=== PATIENT | female | born 1970 | race Caucasian/White ===

== ENCOUNTER 2020-04-12 08:22 | Outpatient (CLI) | payer OTHER | END 2020-04-12 08:23 | disposition home or self-care (01) | LOC: SCSMRI 08:22 | PROVIDERS: ATTEND Neurological Surgery | DX: M54.12 Radiculopathy, cervical region (principal); R55 Syncope and collapse; Z98.1 Arthrodesis status | CPT/HCPCS: 70551; 72141 ==

== ENCOUNTER 2022-07-16 17:00 | Inpatient (IN) | payer BC ==
[2022-07-16 16:17] VITALS: BMI 27.3
[2022-07-20] MEDS ORDERED: Tranexamic Acid 1,000 MG/10 ML VIAL ONE (07:49)
[2022-07-20] MEDS ORDERED: Sodium Chloride 0.9% 100 ML ONE ×2 (07:49→09:45)
[2022-07-20] MEDS ORDERED: Vancomycin 1 GM/200 ML (FROZEN) BAG ONE (07:49)
[2022-07-20] MEDS ORDERED: Midazolam HCl 2 mg/2 ml Vial ONE ×2 (08:04→12:41)
[2022-07-20] MEDS ORDERED: Ropivacaine 0.5% HCl/PF (150 MG/30 ML VIAL) ONE (08:04)
[2022-07-20] MEDS ORDERED: fentaNYL 50 mcg/mL 1 mL Vial ONE (08:04)
[2022-07-20] MEDS ORDERED: Acetaminophen 500 MG TAB ONE (09:15)
[2022-07-20] MEDS ORDERED: CEFAZOLIN 2 GM VIAL ONE (09:45)
[2022-07-20] MEDS ORDERED: diphenhydrAMINE 25 MG CAP PO PRN (09:53)
[2022-07-20] MEDS ORDERED: HYDROcodone/Acetaminophen 10/325 mg Tablet PO PRN (09:53)
[2022-07-20] MEDS ORDERED: Ondansetron PF 4 MG/2 ML Vial IVP PRN (09:53)
[2022-07-20] MEDS ORDERED: fentaNYL 50 mcg/mL 1 mL Vial SLOW IVP PRN (09:53)
[2022-07-20] MEDS ORDERED: Promethazine HCl 25 MG/ML VIAL IM PRN ×2 (09:53→11:53)
[2022-07-20] MEDS ORDERED: Acetaminophen 325 MG TAB PO PRN (09:53)
[2022-07-20] MEDS ORDERED: fentaNYL PF 100 MCG/2 ML SYRINGE ONE (09:55)
[2022-07-20] MEDS ORDERED: Propofol 500 MG/50 ML VIAL ONE (09:55)
[2022-07-20] MEDS ORDERED: Methocarbamol 500 MG TAB PO PRN (09:55)
[2022-07-20] MEDS ORDERED: Sodium Chloride 0.9% 1,000 ML IV SCH (10:00)
[2022-07-20] MEDS ORDERED: Ropivacaine 0.2% HCl/PF 20 ML ONE (10:07)
[2022-07-20] MEDS ORDERED: Semaglutide [Ozempic] 1 MG/0.75 ML Pen.Injctr SC SCH (10:15)
[2022-07-20] MEDS ORDERED: Ketorolac Tromethamine 30 MG/ML VIAL ONE (10:56)
[2022-07-20] MEDS ORDERED: PROPOFOL 200 MG/20 ML VIAL ONE (10:56)
[2022-07-20] MEDS ORDERED: PHENYLEPHRINE-NS 100 MCG/ML 10 ML SYRINGE ONE (10:56)
[2022-07-20] MEDS ORDERED: GLYCOPYRROLATE/PF 0.2 MG/ML VIAL ONE (10:56)
[2022-07-20] MEDS ORDERED: ePHEDrine Sulfate 50 MG/10 ML VIAL ONE (10:56)
[2022-07-20] MEDS ORDERED: NEOSTIGMINE 3 MG/3 ML SYR 3 MG/3 ML SYRINGE ONE (10:56)
[2022-07-20] MEDS ORDERED: Dexamethasone 20 MG/5 ML VIAL ONE (10:56)
[2022-07-20] MEDS ORDERED: Lidocaine 1% PF 5 ML VIAL ONE (10:56)
[2022-07-20] MEDS ORDERED: HYDROmorphone 2 MG/ML VIAL SLOW IVP PRN (11:53)
[2022-07-20] MEDS ORDERED: Meperidine HCl/PF 25 MG/ML VIAL SLOW IVP PRN (11:53)
[2022-07-20] MEDS ORDERED: Promethazine HCl 25 MG/ML VIAL ONE (12:26)
[2022-07-20] MEDS ORDERED: Ondansetron PF 4 MG/2 ML Vial ONE (12:48)
[2022-07-20] MEDS ORDERED: Fentanyl 250 MCG/5 ML VIAL ONE (13:15)
[2022-07-20] MEDS ORDERED: Bupivacaine PF 0.5% 30 ML VIAL ONE (14:47)
[2022-07-20] MEDS: Ketorolac Tromethamine 30 MG/ML VIAL IVP SCH ×2 (17:14→20:36)
[2022-07-20] MEDS: CEFAZOLIN 2 GM in Sodium Chloride 0.9% 100 ML IVPB SCH (18:26)
[2022-07-20] MEDS: busPIRone HCl 10 MG TAB PO SCH (20:29)
[2022-07-20] MEDS: Pregabalin 50 MG CAP PO SCH (20:31)
[2022-07-20] MEDS: Trospium 20 MG TAB PO SCH (20:32)
[2022-07-20] MEDS: Aspirin 81 mg Enteric Coated Tablet PO SCH (20:35)
[2022-07-20] MEDS: Senokot S 8.6-50 MG TAB PO SCH (20:36)
[2022-07-20] MEDS: Ferrous Gluconate 324 MG TAB PO SCH (20:36)
[2022-07-20] MEDS ORDERED: Montelukast Sodium 10 mg Tablet PO SCH (21:00)
[2022-07-20] MEDS: HYDROcodone/Acetaminophen 10/325 mg Tablet PO PRN (22:23)
[2022-07-21] MEDS: CEFAZOLIN 2 GM in Sodium Chloride 0.9% 100 ML IVPB SCH (01:50)
[2022-07-21] MEDS: HYDROcodone/Acetaminophen 10/325 mg Tablet PO PRN ×2 (03:37→10:38)
[2022-07-21] MEDS: Ketorolac Tromethamine 30 MG/ML VIAL IVP SCH (05:59)
[2022-07-21 06:29] LABS: Hemoglobin 10.9 g/dL (12.0-16.0); Mean Corpuscular HGB CONC 32.9 g/dL (32.0-36.0); Mean Corpuscular Hemoglobin 28.9 pg (27.0-31.0); Mean Corpuscular Volume 87.8 fl (78.0-98.0); Platelet Count 194 10x3/uL (130-400); RBC Distribution Width 12.2 % (11.5-14.5); Red Blood Cell (RBC) Count 3.77 mill/uL (4.20-5.40); White Blood Cell (WBC) Count 6.9 10x3/uL (4.8-10.8)
[2022-07-21 07:55] VITALS: BP 105/70; TEMP 98.2
[2022-07-21] MEDS: Senokot S 8.6-50 MG TAB PO SCH (08:58)
[2022-07-21] MEDS: Trospium 20 MG TAB PO SCH (08:58)
[2022-07-21] MEDS: Aspirin 81 mg Enteric Coated Tablet PO SCH (08:58)
[2022-07-21] MEDS: Ferrous Gluconate 324 MG TAB PO SCH (08:59)
[2022-07-21] MEDS: Pregabalin 50 MG CAP PO SCH (08:59)
[2022-07-21] MEDS: busPIRone HCl 10 MG TAB PO SCH (08:59)
[2022-07-21] MEDS ORDERED: CeleCOXIB 100 MG CAP PO SCH (09:00)
[2022-07-21] MEDS ORDERED: Linaclotide [Linzess] 72 MCG Capsule PO SCH (09:00)
[2022-07-21] MEDS ORDERED: Bupropion 150 MG SR TAB PO SCH (09:00)
[2022-07-21] MEDS ORDERED: Multivitamin W/ Minerals 1 TAB PO SCH (09:00)
[2022-07-21] MEDS ORDERED: Lisdexamfetamine Dimesylate [Vyvanse] 30 MG Capsule PO SCH (09:00)
[2022-07-21] MEDS ORDERED: Midazolam HCl 2 mg/2 ml Vial ONE (09:42)
== END 2022-07-21 11:03 | disposition home or self-care (01) | DRG 470 ==
LOC: SURG A 07-20 06:18 → SJJU 07-20 16:49 → EDSTATUS 07-20 17:00
PROVIDERS: ADMIT Orthopaedic Surgery; ATTEND Orthopaedic Surgery
PROC: 0SR904Z Replacement of Right Hip Joint with Ceramic on Polyethylene Synthetic Substitute, Open Approach (ICD-10-PCS; principal; 2022-07-20)
DX: M16.11 Unilateral primary osteoarthritis, right hip (principal); F41.9 Anxiety disorder, unspecified; F32.A Depression, unspecified; J30.2 Other seasonal allergic rhinitis; E78.5 Hyperlipidemia, unspecified; K21.9 Gastro-esophageal reflux disease without esophagitis; M79.7 Fibromyalgia; Z90.49 Acquired absence of other specified parts of digestive tract; Z88.8 Allergy status to other drugs, medicaments and biological substances; Z90.710 Acquired absence of both cervix and uterus; Z98.84 Bariatric surgery status; Z98.1 Arthrodesis status; Z82.49 Family history of ischemic heart disease and other diseases of the circulatory system; Z80.9 Family history of malignant neoplasm, unspecified; Z87.891 Personal history of nicotine dependence; Z79.899 Other long term (current) drug therapy
CPT/HCPCS: 36415; 85027; C1776; J1100; J1885; J2250; J2405; J2550; J2704; J2795; J3010; J3370-JW; J3490; S0020

== ENCOUNTER 2022-10-26 15:22 | Outpatient (CLI) | payer BC ==
[2022-10-26 16:46] LABS: #Eosinphils 0.1 10x3/uL (0.0-0.5); #Monocytes 0.4 10x3/uL (0.0-1.1); #Neutrophils 3.4 10x3/uL (1.5-8.4); %Basophils 0.5 % (0.0-2.0); %Lymphocytes 38.9 % (18.0-47.0); %Monocytes 5.9 % (0.0-10.0); %Neutrophils 53.5 % (40.0-75.0); Hematocrit 38.5 % (34.9-44.5); Hemoglobin 12.8 g/dL (12.0-15.5); Mean Corpuscular HGB CONC 33.2 g/dL (32.0-36.0); Mean Corpuscular Hemoglobin 28.4 pg (27.0-33.0); Mean Corpuscular Volume 85.6 fl (81.6-98.3); Mean Platelet Volume 10.6 fl (7.4-10.4); Platelet Count 292 10x3/uL (150-450); RBC Distribution Width 11.9 % (11.5-14.5); White Blood Cell (WBC) Count 6.3 10x3/uL (3.5-10.5)
[2022-10-26 17:09] LABS: ALT (SGPT) 21 U/L (8-55); AST (SGOT) 17 U/L (5-34); Albumin 4.4 g/dL (3.5-5.0); Alkaline Phosphatase 64 U/L (40-110); Anion Gap 10 mmol/L (10-20); BUN (Urea Nitrogen) 17 mg/dL (9.8-20.1); Bilirubin, Total 0.4 mg/dL (0.2-1.2); Calc. Creatinine Clearance 0 mL/min (70-130); Calcium 9.4 mg/dL (7.8-10.44); Carbon Dioxide 29 mmol/L (22-29); Chloride 106 mmol/L (98-107); Estimated GFR 87; Globulin 2.4 g/dL (2.4-3.5); Glucose 81 mg/dL (70-105); Potassium 4.3 mmol/L (3.5-5.1); Protein, Total 6.8 g/dL (6.0-8.3); Sodium 141 mmol/L (136-145)
== END 2022-10-26 15:23 | disposition home or self-care (01) ==
LOC: LABBT 15:22
PROVIDERS: ATTEND Surgery
DX: Z01.818 Encounter for other preprocedural examination (principal); D17.1 Benign lipomatous neoplasm of skin and subcutaneous tissue of trunk
CPT/HCPCS: 80053; 85025; 93005; 93010

== ENCOUNTER 2022-12-22 07:38 | Day surgery (SDC) | payer BC ==
[2022-12-21 10:24] VITALS: BMI 24.7
[2022-12-22] MEDS ORDERED: Lidocaine 1% w/Epinephrine 1:100K 20 ML VIAL ONE (07:59)
== END 2022-12-22 09:10 | disposition home or self-care (01) ==
LOC: SDC 07:38
PROVIDERS: ATTEND Internal Medicine Cardiovascular Disease
PROC: 0JPT02Z Removal of Monitoring Device from Trunk Subcutaneous Tissue and Fascia, Open Approach (ICD-10-PCS; principal; 2022-12-22)
DX: T82.191A Other mechanical complication of cardiac pulse generator (battery), initial encounter (principal); R55 Syncope and collapse; I47.19 Other supraventricular tachycardia; R00.2 Palpitations; Z98.84 Bariatric surgery status; Z90.710 Acquired absence of both cervix and uterus; Z90.49 Acquired absence of other specified parts of digestive tract; Z87.891 Personal history of nicotine dependence; Z98.890 Other specified postprocedural states; Y71.2 Prosthetic and other implants, materials and accessory cardiovascular devices associated with adverse incidents
CPT/HCPCS: 33286; C1764

== ENCOUNTER 2023-02-02 12:17 | Outpatient (CLI) | payer BC | END 2023-02-02 12:18 | disposition home or self-care (01) | LOC: BICMAMMO 12:17 | PROVIDERS: ATTEND Nurse Practitioner Family | DX: Z12.31 Encounter for screening mammogram for malignant neoplasm of breast (principal) | CPT/HCPCS: 77063; 77067 ==

== ENCOUNTER 2024-03-16 14:29 | Inpatient (IN) | payer BC, OTHER ==
[2024-03-16] MEDS ORDERED: Acetaminophen 500 MG TAB ONE (15:44)
[2024-03-16 16:02] LABS: #Basophils 0.03 10x3/uL (0.0-0.2); #Eosinophils Less than 0.03 10x3/uL (0.0-0.7); %Basophils 0.5 % (0.0-1.0); %Eosinophils 0.4 % (0.0-10.0); %Lymphocytes 35.4 % (21.0-51.0); %Monocytes 5.2 % (0.0-10.0); %Neutrophils 58.3 % (42.0-75.0); Hematocrit 41.6 % (36.0-47.0); Hemoglobin 14.3 g/dL (12.0-16.0); Mean Corpuscular HGB CONC 34.4 g/dL (32.0-36.0); Mean Corpuscular Hemoglobin 29.2 pg (27.0-31.0); Mean Corpuscular Volume 84.9 fL (78.0-98.0); Mean Platelet Volume 9.7 fL (7.4-10.4); Platelet Count 290 10x3/uL (130-400); RBC Distribution Width 12.6 % (11.5-14.5)
[2024-03-16 16:17] LABS: Base Excess -1.5 mEq/L (-2.0 to +3.0); Chloride (VBG) 101 mmol/L (98-106); Hematocrit-VBG 44 % (36.0-47.0); Hemoglobin (Hb) 14.9 g/dL (11.7-16.0); Potassium (VBG) 4.03 mmol/L (3.70-5.30)
[2024-03-16 16:24] LABS: Acetaminophen Less than 10 mcg/mL (Less than 10); Alcohol Less than 10.0 mg/dL (Less than 10); Lipase 18 U/L (8-78); Salicylate Less than 8.0 mg/dL (Less than 8.0)
[2024-03-16 16:25] LABS: ALT (SGPT) 17 U/L (Less than 34); AST (SGOT) 16 U/L (11-34); Albumin 4.4 g/dL (3.1-4.5); Alkaline Phosphatase 72 U/L (40-110); Anion Gap 13 mmol/L (10-20); BUN (Urea Nitrogen) 10 mg/dL (9.8-20.1); Bilirubin, Total 0.6 mg/dL (0.3-1.2); Calc. Creatinine Clearance 0 mL/min (70-130); Calcium 9.6 mg/dL (7.8-10.44); Carbon Dioxide 27 mmol/L (22-29); Chloride 105 mmol/L (98-107); Estimated GFR 103; Globulin 3.1 g/dL (2.4-3.5); Glucose 79 mg/dL (70-105); Potassium 4.2 mmol/L (3.5-5.1); Protein, Total 7.5 g/dL (6.0-8.3); Sodium 141 mmol/L (136-145)
[2024-03-16 18:17] LABS: Amphetamine Detected (NotDetected); Barbiturates Screen Not Detected (NotDetected); Benzodiazepine Screen Not Detected (NotDetected); Cocaine Metabolite Screen Not Detected (NotDetected); Methadone Not Detected (NotDetected); Methamphetamine Not Detected (NotDetected); Opiate Screen Not Detected (NotDetected); Oxycodone Screen Not Detected (NotDetected); Phencyclidine (PCP) Not Detected (NotDetected); THC/Cannabinoid Screen Not Detected (NotDetected); Tricyclic Screen Not Detected (NotDetected)
[2024-03-16 18:22] LABS: Bacteria/HPF None Seen HPF (None Seen); Bilirubin Negative (Negative); Blood, Urine Negative (Negative); CAUTI Indications for Culture Dysuria,urgency,freq; Clarity Clear (Clear); Glucose, Urine (Dipstick) Normal (Negative); Ketone, Urine Negative (Negative); Leukocyte Negative Leu/uL (Negative); Nitrite Negative (Negative); Protein, Urine (Dipstick) Negative (Neg-Trace); RBC/HPF 0-3 HPF (0-3); Specific Gravity, Urine 1.006 (1.002-1.036); Squamous Epithelial 0-3 HPF (0-3); Urobilinogen Normal mg/dL (Less than 2); WBC/HPF 0-3 HPF (0-3)
[2024-03-16 18:26] LABS: Urine Culture Reflex No No
[2024-03-16 18:46] LABS: Troponin I Less than 0.010 ng/mL (< 0.028)
[2024-03-16] MEDS ORDERED: Methocarbamol 500 MG TAB PO PRN (19:09)
[2024-03-16] MEDS ORDERED: HYDROcodone/Acetaminophen 7.5/325 mg Tablet PO PRN (19:09)
[2024-03-16] MEDS ORDERED: Ondansetron PF 4 MG/2 ML Vial IVP PRN (19:20)
[2024-03-16] MEDS ORDERED: Metoprolol Succinate XL 25 MG ER.TAB PO SCH (21:00)
[2024-03-17] MEDS: busPIRone HCl 10 MG TAB PO SCH ×2 (01:30→01:43)
[2024-03-17] MEDS: Heparin 5,000 UNITS/ML VIAL SC SCH (01:30)
[2024-03-17] MEDS: Metoprolol Succinate XL 50 MG ER.TAB PO SCH ×2 (01:30→01:43)
[2024-03-17] MEDS: Sodium Chloride 0.9% 1,000 ML IV SCH (01:30)
[2024-03-17] MEDS: Pregabalin 50 MG CAP PO SCH (01:31)
[2024-03-17] MEDS: Montelukast Sodium 10 mg Tablet PO SCH ×2 (01:31→01:44)
[2024-03-17 04:50] LABS: #Basophils 0.05 10x3/uL (0.0-0.2); %Eosinophils 1.5 % (0.0-10.0); %Lymphocytes 42.9 % (21.0-51.0); %Monocytes 8.7 % (0.0-10.0); %Neutrophils 45.7 % (42.0-75.0); Hematocrit 37.2 % (36.0-47.0); Hemoglobin 12.2 g/dL (12.0-16.0); Mean Corpuscular HGB CONC 32.8 g/dL (32.0-36.0); Mean Corpuscular Hemoglobin 28.5 pg (27.0-31.0); Mean Corpuscular Volume 86.9 fL (78.0-98.0); Mean Platelet Volume 10.4 fL (7.4-10.4); Platelet Count 249 10x3/uL (130-400); RBC Distribution Width 12.8 % (11.5-14.5); Red Blood Cell (RBC) Count 4.28 mill/uL (4.20-5.40)
[2024-03-17 05:17] LABS: Troponin I 0.017 ng/mL (< 0.028)
[2024-03-17 05:41] LABS: Anion Gap 14 mmol/L (10-20); BUN (Urea Nitrogen) 10 mg/dL (9.8-20.1); Calc. Creatinine Clearance 103 mL/min (70-130); Calcium 8.7 mg/dL (7.8-10.44); Carbon Dioxide 22 mmol/L (22-29); Chloride 110 mmol/L (98-107); Estimated GFR 105; Glucose 49 mg/dL (70-105); Potassium 3.9 mmol/L (3.5-5.1); Sodium 142 mmol/L (136-145)
[2024-03-17 06:03] LABS: Troponin I Less than 0.010 ng/mL (< 0.028)
[2024-03-17] MEDS: Bupropion 150 MG SR.TAB PO SCH (07:34)
[2024-03-17] MEDS: Acetaminophen 325 MG TAB PO PRN (07:34)
[2024-03-17] MEDS: Rosuvastatin 10 MG TAB PO SCH (07:35)
[2024-03-17] MEDS: Pantoprazole 40 MG DR.TAB PO SCH (07:36)
[2024-03-17] MEDS: FLU (Fluarix Triv) TS24-25(6MOS UP)/PF 45 MCG/0.5 ML Syringe IM ONE (07:36)
[2024-03-17] MEDS ORDERED: Lisdexamfetamine Dimesylate [Vyvanse] 30 MG Capsule PO SCH (09:00)
[2024-03-17] MEDS: Butalbital 50 MG/Aspirin 325 MG/Caffeine 40 MG CAPSULE PO PRN (10:18)
[2024-03-17] MEDS: Senokot S 8.6-50 MG TAB PO SCH (21:20)
[2024-03-18 05:23] LABS: #Basophils Less than 0.03 10x3/uL (0.0-0.2); %Basophils 0.4 % (0.0-1.0); %Eosinophils 1.9 % (0.0-10.0); %Lymphocytes 46.7 % (21.0-51.0); %Neutrophils 42.8 % (42.0-75.0); Hematocrit 40.1 % (36.0-47.0); Hemoglobin 13.3 g/dL (12.0-16.0); Mean Corpuscular HGB CONC 33.2 g/dL (32.0-36.0); Mean Corpuscular Hemoglobin 28.6 pg (27.0-31.0); Mean Corpuscular Volume 86.2 fL (78.0-98.0); Mean Platelet Volume 9.7 fL (7.4-10.4); Platelet Count 227 10x3/uL (130-400); Red Blood Cell (RBC) Count 4.65 mill/uL (4.20-5.40)
[2024-03-18 05:50] LABS: Anion Gap 12 mmol/L (10-20); BUN (Urea Nitrogen) 13 mg/dL (9.8-20.1); Calc. Creatinine Clearance 76 mL/min (70-130); Carbon Dioxide 27 mmol/L (22-29); Chloride 108 mmol/L (98-107); Estimated GFR 81; Glucose 81 mg/dL (70-105); Potassium 4.8 mmol/L (3.5-5.1); Sodium 142 mmol/L (136-145)
[2024-03-18 08:18] VITALS: BP 117/59; TEMP 98.2
== END 2024-03-18 12:45 | disposition home or self-care (01) | DRG 312 ==
LOC: ERS 14:29 → ERHOLD 19:22 → OBS 03-17 00:48 → OBSVTOIN 03-17 13:31
PROVIDERS: ADMIT Family Medicine; ATTEND Internal Medicine
DX: R55 Syncope and collapse (principal); I47.20 Ventricular tachycardia, unspecified; I49.9 Cardiac arrhythmia, unspecified; E78.5 Hyperlipidemia, unspecified; F41.9 Anxiety disorder, unspecified; K21.9 Gastro-esophageal reflux disease without esophagitis; R00.2 Palpitations; M79.7 Fibromyalgia; F32.A Depression, unspecified; F90.9 Attention-deficit hyperactivity disorder, unspecified type; F15.90 Other stimulant use, unspecified, uncomplicated; Z96.641 Presence of right artificial hip joint; Z88.8 Allergy status to other drugs, medicaments and biological substances; Z90.710 Acquired absence of both cervix and uterus; Z90.49 Acquired absence of other specified parts of digestive tract; Z98.1 Arthrodesis status; Z87.891 Personal history of nicotine dependence; M48.02 Spinal stenosis, cervical region; I08.1 Rheumatic disorders of both mitral and tricuspid valves
CPT/HCPCS: 36415; 36416; 70450; 71045; 80048; 80053; 80306; 80307; 81001; 82805; 83690; 83735; 84484; 85025; 87077; 87086; 87428; 93005; 93306; 96360; 96372; G0378; J1644; J7030

== ENCOUNTER 2024-10-10 16:53 | Emergency (ER) | payer OTHER, SELFPAY ==
[2024-10-10] MEDS ORDERED: Ketorolac Tromethamine 30 MG (1 mL) VIAL ONE (19:25)
[2024-10-10] MEDS ORDERED: Dexamethasone 10 MG/ML VIAL ONE (19:26)
[2024-10-10 19:35] LABS: #Basophils 0.03 10x3/uL (0.0-0.2); #Eosinophils Less than 0.03 10x3/uL (0.0-0.7); #Monocytes 1.36 10x3/uL (0.11-0.59); #Neutrophils 7.73 10x3/uL (1.40-6.50); %Basophils 0.3 % (0.0-1.0); %Eosinophils 0.1 % (0.0-10.0); %Lymphocytes 17.7 % (21.0-51.0); %Monocytes 12.2 % (0.0-10.0); %Neutrophils 69.4 % (42.0-75.0); Hematocrit 41.9 % (36.0-47.0); Hemoglobin 13.9 g/dL (12.0-16.0); Mean Corpuscular Hemoglobin 28.6 pg (27.0-31.0); Mean Corpuscular Volume 86.2 fL (78.0-98.0); Platelet Count 273 10x3/uL (130-400); Red Blood Cell (RBC) Count 4.86 mill/uL (4.20-5.40); White Blood Cell (WBC) Count 11.13 10x3/uL (4.8-10.8)
[2024-10-10 19:47] LABS: ALT (SGPT) 11 U/L (Less than 34); AST (SGOT) 14 U/L (11-34); Albumin 3.6 g/dL (3.1-4.5); Alkaline Phosphatase 83 U/L (40-110); Anion Gap 19 mmol/L (10-20); BUN (Urea Nitrogen) 14 mg/dL (9.8-20.1); Bilirubin, Total 1.1 mg/dL (0.3-1.2); Calc. Creatinine Clearance 0 mL/min (70-130); Calcium 9.6 mg/dL (7.8-10.44); Carbon Dioxide 25 mmol/L (22-29); Chloride 97 mmol/L (98-107); Globulin 4.1 g/dL (2.4-3.5); Glucose 93 mg/dL (70-105); Potassium 3.6 mmol/L (3.5-5.1); Sodium 137 mmol/L (136-145)
[2024-10-10 19:55] LABS: Bacteria/HPF 4+ HPF (None Seen); CAUTI Indications for Culture Acute Hematuria; Glucose, Urine (Dipstick) Normal (Negative); Leukocyte 250 Leu/uL (Negative); Protein, Urine (Dipstick) 70 mg/dL (Neg-Trace); RBC/HPF Greater than 50 HPF (0-3); Specific Gravity, Urine 1.015 (1.002-1.036); WBC/HPF Greater than 50 HPF (0-3)
[2024-10-10 19:58] LABS: Urine Culture Reflex Yes Yes
[2024-10-10] MEDS ORDERED: cefTRIAXone (ROCEPHIN) 2 GM VIAL ONE (20:01)
== END 2024-10-10 21:21 | disposition home or self-care (01) ==
LOC: ERS 16:53
DX: N10 Acute pyelonephritis (principal)
CPT/HCPCS: 80053; 81001; 85025; 87077; 87086; 87428; 96361; 96365; 96375; J0696; J1100; J1885